=== PATIENT | male | born 1950 | race Caucasian/White ===

== ENCOUNTER 2022-03-15 15:40 | Emergency (ER) | payer MEDICARE, OTHER ==
[2022-03-15 16:50] LABS: HEMOGLOBIN 17.5 gm/dl (14.0-17.5); RED BLOOD COUNT 5.32 M/UL (4.20-5.50)
[2022-03-15] MEDS ORDERED: PROAIR HFA8.5 GM INH (17:35)
== END 2022-03-15 18:12 | disposition home or self-care (01) ==
LOC: ER1 15:40
PROVIDERS: Emergency Medicine
DX: J42 Unspecified chronic bronchitis (principal); I10 Essential (primary) hypertension
CPT/HCPCS: 71046; 80053; 83880; 84484; 85025; 86140; 93005; 94664; 99285

== ENCOUNTER → 2022-04-21 | Outpatient (CLI) | payer MEDICARE, OTHER ==
[~2022-04-21] MED LIST: PROAIR HFA8.5 GM INH
== END ==
LOC: CT 15:06
DX: R06.02 Shortness of breath (principal); J98.11 Atelectasis
CPT/HCPCS: 36415; 71260; 82565; 84520; Q9967